=== PATIENT | male | born 1955 | race African-American/Black ===

== ENCOUNTER 2017-03-03 07:42 | Emergency (ER) | payer MEDICAID ==
[~2017-03-03] VITALS: Ht 167.6 cm; Wt 128.4 kg
[2017-03-03 10:38] VITALS: BP 178/63
== END 2017-03-03 12:17 | disposition home or self-care (01) ==
LOC: ER 07:42
DX: J20.9 Acute bronchitis, unspecified (principal); J45.909 Unspecified asthma, uncomplicated; I10 Essential (primary) hypertension; E78.5 Hyperlipidemia, unspecified; F17.210 Nicotine dependence, cigarettes, uncomplicated; G89.29 Other chronic pain; M54.5 Low back pain; Z88.6 Allergy status to analgesic agent
CPT/HCPCS: 71046

== ENCOUNTER 2017-12-22 16:20 | Inpatient (IN) | payer MEDICAID ==
[~2017-12-22] VITALS: Ht 167.6 cm; Wt 126.8 kg
[2017-12-22 17:16] LABS: Basophils # (auto) 0 uL; Basophils % (auto) 0.4 % (0.0-2.0); Eosinophils # (auto) 0.3 uL; Eosinophils % (auto) 2.8 % (0.0-7.0); Hematocrit 39.4 % (41.0-53.0); Hemoglobin 13.1 g/dL (13.5-17.5); Lymphocytes # (auto) 1.6 uL; Lymphocytes % (auto) 16.6 % (10.0-50.0); Mean Corpuscular Hemoglobin 31.1 pg (28.0-32.0); Mean Corpuscular Hgb Conc. 33.3 g/dL (32.0-36.0); Mean Corpuscular Volume 93.2 fL (80.0-100.0); Monocytes # (auto) 0.6 uL; Monocytes % (auto) 6.4 % (0.0-12.0); Neutrophils # (auto) 7.2 uL; Neutrophils % (auto) 73.8 % (37.0-80.0); Nucleated Red Blood Cells % 0.1 %; Platelet Count (auto) 258 10^3/uL (140-450); Red Blood Cells 4.22 10^6/uL (4.5-5.90); Red Cell Distribution Width 13.6 % (11.8-14.3); White Blood Cell 9.7 10^3/uL (4.4-10.8)
[2017-12-22 17:32] LABS: Alanine Aminotransferase 21 U/L (16-61); Anion Gap 6 (5-15); Aspartate Aminotransferase 11 U/L (15-37); BUN/Creatinine Ratio 16.5; Blood Urea Nitrogen 15 mg/dL (7-18); Calcium 8.3 mg/dL (8.5-10.1); Carbon Dioxide 25 mmol/L (21-32); Chloride 110 mmol/L (98-107); GFR African American 109 mL/min; GFR Non-African American 90 mL/min; Glucose 114 mg/dL (74-106); Potassium 4.3 mmol/L (3.5-5.1); Sodium 141 mmol/L (136-145)
[2017-12-22 17:37] LABS: Alkaline Phosphatase 105 U/L (45-117); Bilirubin, Total 0.3 mg/dL (0.2-1.0); Total Protein 6.9 g/dL (6.4-8.2)
[2017-12-22] MEDS ORDERED: ASPirin 81 mg TAB PO ONE (18:15)
[2017-12-22 19:01] LABS: INR 0.91 (0.9-1.15); Partial Thromboplastin Time 35.5 sec (23.78-33.04); Prothrombin Time 9.8 sec (9.27-12.13)
[2017-12-22] MEDS ORDERED: MORPHINE SULFATE 4 MG/ML SYR/VIAL IV PRN (19:30)
[2017-12-22] MEDS ORDERED: LACTULOSE 20Gm/30ML SOLN PO PRN (19:30)
[2017-12-22] MEDS ORDERED: traMADol HCL 50 MG TAB PO PRN (19:30)
[2017-12-22] MEDS ORDERED: ACETAMINOPHEN 500 MG TAB PO PRN (19:30)
[2017-12-22] MEDS ORDERED: LORazepam 0.5 MG TAB PO PRN (19:30)
[2017-12-22] MEDS ORDERED: TEMAZEPAM 15 MG CAP PO PRN (19:30)
[2017-12-22] MEDS ORDERED: ONDANSETRON HCL 4 MG/2 ML VIAL IV PRN (19:30)
[2017-12-22] MEDS ORDERED: NITROGLYCERIN 0.4 MG SL TAB SL PRN (19:30)
[2017-12-22] MEDS: ATORVASTATIN 20 MG TAB PO SCH (20:57)
[2017-12-22] MEDS: CARVEDILOL 3.125 MG TAB PO SCH (20:57)
[2017-12-22] MEDS: SODIUM CHLOR 0.9% PF (SALINE LOCK) 10ML VIAL/SYR IV SCH ×2 (21:06→21:07)
[2017-12-22] MEDS: MORPHINE SULFATE 4 MG/ML SYR/VIAL IV PRN (21:06)
[2017-12-22 21:14] VITALS: BP 160/97
[2017-12-22 22:00] VITALS: BP 112/72
[2017-12-23 05:00] VITALS: BP 126/64
[2017-12-23] MEDS ORDERED: CARI-277 PO (05:21)
[2017-12-23] MEDS ORDERED: HYDR-531 PO (05:21)
[2017-12-23] MEDS ORDERED: ASPI-231 PO (05:21)
[2017-12-23] MEDS ORDERED: CAR3125T PO (05:21)
[2017-12-23] MEDS ORDERED: ATO40T PO (05:21)
[2017-12-23] MEDS ORDERED: FURO20TA PO (05:21)
[2017-12-23] MEDS: SODIUM CHLOR 0.9% PF (SALINE LOCK) 10ML VIAL/SYR IV SCH ×6 (06:00→22:06)
[2017-12-23 06:15] LABS: Cholesterol 179 mg/dL (< 200); Triglycerides 118 mg/dL (< 150)
[2017-12-23 06:17] LABS: HDL Cholesterol 42 mg/dL (40-59); LDL Cholesterol 128 mg/dL (< 100)
[2017-12-23] MEDS ORDERED: PNEUMOCOCCAL VACC POLYS 25 MCG/0.5 ML VIAL IM ONE (07:30)
[2017-12-23] MEDS ORDERED: INFLUENZA QUAD 2018-2019 0.5 ML SYRG IM ONE (07:30)
[2017-12-23 09:17] VITALS: BP 130/68
[2017-12-23] MEDS ORDERED: NITROGLYCERIN 0.2MG/HR TOPICAL PATCH TD SCH (10:00)
[2017-12-23] MEDS: ENOXAPARIN SOD 40 MG/0.4 ML SYRINGE SC SCH (10:00)
[2017-12-23] MEDS: FUROSEMIDE 40 MG/4 ML VIAL IV SCH (10:22)
[2017-12-23] MEDS: ASPirin 81 mg TAB PO SCH (10:22)
[2017-12-23] MEDS: CARVEDILOL 3.125 MG TAB PO SCH ×2 (10:23→21:46)
[2017-12-23] MEDS: POTASSIUM CHL 20 Meq TABLET PO SCH (10:35)
[2017-12-23] MEDS: PANTOPRAZOLE 40 MG TAB PO SCH (10:50)
[2017-12-23] MEDS: MORPHINE SULFATE 4 MG/ML SYR/VIAL IV PRN (10:50)
[2017-12-23] MEDS: ENALAPRIL MALEATE 2.5 MG TAB PO SCH (10:51)
[2017-12-23 13:13] VITALS: BP 139/76
[2017-12-23] MEDS ORDERED: OPTISON 3ml Vial for INJ IV ONE (16:01)
[2017-12-23 17:06] VITALS: BP 143/65
[2017-12-23] MEDS: HYDROcodone-ACET 10/325MG TAB PO PRN (17:16)
[2017-12-23 22:00] VITALS: BP 153/58
[2017-12-23] MEDS: ATORVASTATIN 20 MG TAB PO SCH (22:06)
[2017-12-24] MEDS: HYDROcodone-ACET 10/325MG TAB PO PRN ×2 (00:07→10:58)
[2017-12-24] MEDS: SODIUM CHLOR 0.9% PF (SALINE LOCK) 10ML VIAL/SYR IV SCH ×4 (04:57→14:00)
[2017-12-24 05:15] VITALS: BP 134/80
[2017-12-24 06:12] LABS: Basophils # (auto) 0 uL; Basophils % (auto) 0.1 % (0.0-2.0); Eosinophils # (auto) 0.3 uL; Eosinophils % (auto) 3.2 % (0.0-7.0); Hematocrit 40.1 % (41.0-53.0); Hemoglobin 13.4 g/dL (13.5-17.5); Lymphocytes # (auto) 1.9 uL; Lymphocytes % (auto) 23.2 % (10.0-50.0); Mean Corpuscular Hemoglobin 31.1 pg (28.0-32.0); Mean Corpuscular Hgb Conc. 33.4 g/dL (32.0-36.0); Mean Corpuscular Volume 93.2 fL (80.0-100.0); Monocytes # (auto) 0.7 uL; Neutrophils # (auto) 5.3 uL; Neutrophils % (auto) 65.5 % (37.0-80.0); Platelet Count (auto) 266 10^3/uL (140-450); Red Cell Distribution Width 13.2 % (11.8-14.3); White Blood Cell 8.2 10^3/uL (4.4-10.8)
[2017-12-24 06:39] LABS: Potassium 3.9 mmol/L (3.5-5.1)
[2017-12-24 06:44] LABS: BUN/Creatinine Ratio 18.1; Calcium 8.4 mg/dL (8.5-10.1); Magnesium 2.5 mg/dL (1.6-2.6)
[2017-12-24] MEDS ORDERED: ADENOSINE 107 MG in GIVE UN-DILUTED 0 ML IV STA (08:35)
[2017-12-24 09:04] VITALS: BP 124/50
[2017-12-24 09:17] VITALS: BP 125/70
[2017-12-24] MEDS: POTASSIUM CHL 20 Meq TABLET PO SCH (10:56)
[2017-12-24] MEDS: PANTOPRAZOLE 40 MG TAB PO SCH (10:56)
[2017-12-24] MEDS: ENALAPRIL MALEATE 2.5 MG TAB PO SCH (10:57)
[2017-12-24] MEDS: ASPirin 81 mg TAB PO SCH (10:58)
[2017-12-24] MEDS: ENOXAPARIN SOD 40 MG/0.4 ML SYRINGE SC SCH (10:58)
[2017-12-24] MEDS: CARVEDILOL 3.125 MG TAB PO SCH (10:58)
[2017-12-24] MEDS: FUROSEMIDE 40 MG/4 ML VIAL IV SCH (11:00)
[2017-12-24] MEDS ORDERED: METF-370 PO (12:10)
[2017-12-24 13:12] VITALS: BP 151/77
[2017-12-24 14:11] VITALS: BP 151/77
== END 2017-12-24 18:57 | disposition home or self-care (01) | DRG 194 ==
LOC: ER 16:31 → TELE 16:32 → TELE-WESTW 20:18
PROVIDERS: ADMIT Internal Medicine; ATTEND Internal Medicine
DX: I11.0 Hypertensive heart disease with heart failure (principal); E66.01 Morbid (severe) obesity due to excess calories; I50.43 Acute on chronic combined systolic (congestive) and diastolic (congestive) heart failure; R07.89 Other chest pain; E78.5 Hyperlipidemia, unspecified; E11.9 Type 2 diabetes mellitus without complications; F10.10 Alcohol abuse, uncomplicated; F17.210 Nicotine dependence, cigarettes, uncomplicated; G89.29 Other chronic pain; M54.5 Low back pain; J44.9 Chronic obstructive pulmonary disease, unspecified; Z71.6 Tobacco abuse counseling; Z79.82 Long term (current) use of aspirin; Z79.899 Other long term (current) drug therapy; Z88.6 Allergy status to analgesic agent; I50.810 Right heart failure, unspecified; I25.110 Atherosclerotic heart disease of native coronary artery with unstable angina pectoris; Z23 Encounter for immunization; Z68.42 Body mass index [BMI] 45.0-49.9, adult
CPT/HCPCS: 36415; 71045; 78452; 80048; 80053; 80061; 82550; 83036; 83735; 83880; 84443; 84484; 85025; 85379; 85610; 85652; 85730; 86141; 90674; 93005; 93017; 93306; 93970; 94761; 96374; G0378; J0153; Q9956

== ENCOUNTER 2018-03-28 11:31 | Emergency (ER) | payer MEDICAID ==
[~2018-03-28] VITALS: Ht 167.6 cm; Wt 146.5 kg
[~2018-03-28 11:31] MED LIST: ASPI-231 PO; ATO40T PO; CAR3125T PO; CARI-277 PO; FURO20TA PO; HYDR-531 PO; METF-370 PO
[2018-03-28 12:00] VITALS: BP 125/61
[2018-03-28 12:46] LABS: Basophils # (auto) 0 uL; Basophils % (auto) 0.3 % (0.0-2.0); Eosinophils # (auto) 0.3 uL; Eosinophils % (auto) 3.1 % (0.0-7.0); Hematocrit 40.6 % (41.0-53.0); Hemoglobin 13.6 g/dL (13.5-17.5); Lymphocytes # (auto) 1.7 uL; Lymphocytes % (auto) 17.1 % (10.0-50.0); Mean Corpuscular Hemoglobin 31.3 pg (28.0-32.0); Mean Corpuscular Hgb Conc. 33.4 g/dL (32.0-36.0); Mean Corpuscular Volume 93.7 fL (80.0-100.0); Monocytes # (auto) 0.6 uL; Neutrophils # (auto) 7.3 uL; Neutrophils % (auto) 73.5 % (37.0-80.0); Nucleated Red Blood Cells % 0.1 %; Platelet Count (auto) 258 10^3/uL (140-450); Red Blood Cells 4.33 10^6/uL (4.5-5.90); Red Cell Distribution Width 14.6 % (11.8-14.3)
[2018-03-28] MEDS ORDERED: ALBUTEROL SULF 2.5 MG/0.5ML(0.5%) NEB SOLN HHN ONE (13:15)
[2018-03-28] MEDS ORDERED: methylPREDNISolone SOD SUCC 125 MG/2 ML VL IV ONE (13:15)
[2018-03-28] MEDS ORDERED: IPRATROPIUM BROM 0.5 MG/2.5ML INH SOL HHN ONE (13:15)
[2018-03-28 13:44] LABS: Albumin 2.8 g/dL (3.4-5.0); Blood Urea Nitrogen 13 mg/dL (7-18); Calcium 8.1 mg/dL (8.5-10.1); Chloride 110 mmol/L (98-107); Potassium 4.1 mmol/L (3.5-5.1); Sodium 142 mmol/L (136-145)
[2018-03-28 13:53] LABS: Alanine Aminotransferase 18 U/L (16-61); Alkaline Phosphatase 109 U/L (45-117); Anion Gap 4 (5-15); Aspartate Aminotransferase 10 U/L (15-37); BUN/Creatinine Ratio 14.8; Bilirubin, Total 0.5 mg/dL (0.2-1.0); Carbon Dioxide 28 mmol/L (21-32); GFR African American 113 mL/min; GFR Non-African American 93 mL/min; Glucose 112 mg/dL (74-106); Magnesium 2.5 mg/dL (1.6-2.6); Total Protein 6.7 g/dL (6.4-8.2)
== END 2018-03-28 15:57 | disposition left against medical advice (07) ==
LOC: ER 11:40
DX: J20.9 Acute bronchitis, unspecified (principal); E78.5 Hyperlipidemia, unspecified; E11.9 Type 2 diabetes mellitus without complications; I11.0 Hypertensive heart disease with heart failure; I50.9 Heart failure, unspecified; I25.10 Atherosclerotic heart disease of native coronary artery without angina pectoris; F17.210 Nicotine dependence, cigarettes, uncomplicated; Z88.6 Allergy status to analgesic agent; Z79.84 Long term (current) use of oral hypoglycemic drugs; Z79.82 Long term (current) use of aspirin; Z79.899 Other long term (current) drug therapy
CPT/HCPCS: 36415; 71045; 80053; 83735; 83880; 84484; 85025; 93005; 94761; 99284; J7611; J7644

== ENCOUNTER 2018-03-29 16:44 | Emergency (ER) | payer MEDICAID ==
[~2018-03-29] VITALS: Ht 167.6 cm; Wt 146.5 kg
[2018-03-29 21:26] VITALS: BP 135/83
== END 2018-03-29 21:49 | disposition home or self-care (01) ==
LOC: ER 16:56
DX: I11.0 Hypertensive heart disease with heart failure (principal); I50.9 Heart failure, unspecified; I25.10 Atherosclerotic heart disease of native coronary artery without angina pectoris; E78.5 Hyperlipidemia, unspecified; F17.210 Nicotine dependence, cigarettes, uncomplicated; Z88.5 Allergy status to narcotic agent; Z79.84 Long term (current) use of oral hypoglycemic drugs; Z79.899 Other long term (current) drug therapy; Z76.0 Encounter for issue of repeat prescription

== ENCOUNTER 2018-08-06 01:13 | Emergency (ER) | payer MEDICAID ==
[~2018-08-06] VITALS: Ht 167.6 cm; Wt 128.4 kg
[~2018-08-06 01:13] MED LIST changes: +FURO1TAB33 PO; -FURO20TA PO
[2018-08-06] MEDS ORDERED: methylPREDNISolone SOD SUCC 125 MG/2 ML VL IV ONE (05:30)
[2018-08-06] MEDS ORDERED: ALBUTEROL SULF 2.5 MG/0.5ML(0.5%) NEB SOLN NEB ONE (05:30)
[2018-08-06] MEDS ORDERED: IPRATROPIUM BROM 0.5 MG/2.5ML INH SOL NEB ONE (05:30)
[2018-08-06 06:21] LABS: Basophils # (auto) 0.1 uL; Basophils % (auto) 1.2 % (0.0-2.0); Eosinophils # (auto) 0.4 uL; Eosinophils % (auto) 3.9 % (0.0-7.0); Hematocrit 41.8 % (41.0-53.0); Hemoglobin 14.1 g/dL (13.5-17.5); Lymphocytes # (auto) 3.1 uL; Mean Corpuscular Hemoglobin 31.5 pg (28.0-32.0); Mean Corpuscular Hgb Conc. 33.6 g/dL (32.0-36.0); Mean Corpuscular Volume 93.5 fL (80.0-100.0); Monocytes # (auto) 0.7 uL; Monocytes % (auto) 6.6 % (0.0-12.0); Neutrophils # (auto) 6.6 uL; Neutrophils % (auto) 60.3 % (37.0-80.0); Platelet Count (auto) 267 10^3/uL (140-450); Red Blood Cells 4.47 10^6/uL (4.5-5.90); Red Cell Distribution Width 14.7 % (11.8-14.3); White Blood Cell 10.9 10^3/uL (4.4-10.8)
[2018-08-06 07:09] LABS: Calcium 8.8 mg/dL (8.5-10.1); Chloride 109 mmol/L (98-107); Potassium 4.2 mmol/L (3.5-5.1); Sodium 144 mmol/L (136-145)
[2018-08-06 07:13] LABS: Alanine Aminotransferase 24 U/L (16-61); Anion Gap 8 (5-15); Aspartate Aminotransferase 18 U/L (15-37); BUN/Creatinine Ratio 10.8; Blood Urea Nitrogen 11 mg/dL (7-18); Carbon Dioxide 27 mmol/L (21-32); GFR African American 95 mL/min; GFR Non-African American 79 mL/min; Glucose 105 mg/dL (74-106)
[2018-08-06 07:17] LABS: Alkaline Phosphatase 107 U/L (45-117); Bilirubin, Total 0.3 mg/dL (0.2-1.0)
[2018-08-06 10:35] VITALS: BP 150/86
== END 2018-08-06 10:47 | disposition home or self-care (01) ==
LOC: ER 01:16
DX: G89.29 Other chronic pain (principal); M54.5 Low back pain; R60.0 Localized edema; E44.0 Moderate protein-calorie malnutrition; I11.0 Hypertensive heart disease with heart failure; I50.9 Heart failure, unspecified; E78.5 Hyperlipidemia, unspecified; F17.210 Nicotine dependence, cigarettes, uncomplicated; Z88.6 Allergy status to analgesic agent; Z68.42 Body mass index [BMI] 45.0-49.9, adult; Z79.899 Other long term (current) drug therapy
CPT/HCPCS: 36415; 71045; 80053; 83880; 84484; 85025; 93005; 94640; 96374; 99284; J2930; J7611; J7644

== ENCOUNTER 2018-08-22 01:26 | Emergency (ER) | payer MEDICAID ==
[~2018-08-22] VITALS: Ht 167.6 cm; Wt 146.1 kg
[~2018-08-22 01:26] MED LIST changes: -FURO1TAB33 PO; +FURO20TA PO
[2018-08-22 01:37] VITALS: BP 143/54
== END 2018-08-22 01:43 | disposition left against medical advice (07) ==
LOC: ER 01:26
DX: R22.43 Localized swelling, mass and lump, lower limb, bilateral (principal); Z53.21 Procedure and treatment not carried out due to patient leaving prior to being seen by health care provider